=== PATIENT | female | born 1965 | race African-American/Black ===

== ENCOUNTER 2017-04-07 13:49 | Emergency (ER) | payer BC ==
[~2017-04-07] VITALS: Ht 167.6 cm; Wt 64.0 kg
[2017-04-07 14:03] VITALS: BP 125/77
[2017-04-07] MEDS ORDERED: IBUPROFEN 600MG TABLET PO ONE (14:30)
== END 2017-04-07 15:11 | disposition home or self-care (01) ==
LOC: ER 13:50
DX: S09.90XA Unspecified injury of head, initial encounter (principal); R11.0 Nausea; Z88.0 Allergy status to penicillin; Z88.2 Allergy status to sulfonamides; Z88.5 Allergy status to narcotic agent; Z88.8 Allergy status to other drugs, medicaments and biological substances; Z90.710 Acquired absence of both cervix and uterus; W18.40XA Slipping, tripping and stumbling without falling, unspecified, initial encounter; Y93.89 Activity, other specified; Y92.89 Other specified places as the place of occurrence of the external cause; Y99.8 Other external cause status
CPT/HCPCS: 99282